=== PATIENT | female | born 1985 | race Caucasian/White ===

== ENCOUNTER 2022-06-08 19:35 | Emergency (ER) | payer MEDICAID, SELFPAY ==
[2022-06-08 20:55] VITALS: BP 138/72; PULSE 76; RESP 18; TEMP 36.7; O2SAT 98; BMI 46.0
--- NOTE | 2022-06-08 21:59 | XR_ITS ---
PROCEDURE INFORMATION: Exam: XR Chest Exam date and time: 06/08/2022 9:55 PM Age: 37 years old Clinical indication: Other: Congestion TECHNIQUE: Imaging protocol: Radiologic exam of the chest. Views: 2 views. COMPARISON: No relevant prior studies available. FINDINGS: Lungs: Unremarkable. No consolidation. Pleural spaces: Unremarkable. No pleural effusion. No pneumothorax. Heart/Mediastinum: Unremarkable. No cardiomegaly. Bones/joints: Unremarkable. IMPRESSION: No acute findings.
[2022-06-08 22:02] LABS: Coronavirus 19, PCR Not Detected (NotDetected); Influenza A, PCR Not Detected (NotDetected)
[2022-06-08 22:14] LABS: Strep Scrn Group A (Rapid) Negative (Negative)
--- NOTE | 2022-06-08 22:21 | HMH.EDURI ---
Discharge Plan Disposition Chief Complaint: Upper Respiratory Infection Prescriptions Prescriptions: No Action Unobtainable Referrals Follow up/Referrals: Provider,Referral, MD [Primary Care Provider] - See instructions Clinical Impressions Clinical Impression: Bronchitis Stand Alone Forms Stand Alone Forms: Work/School Release Instructions Patient Instructions: DI for Acute Bronchitis Discharge ED Provider: Yamila (ED)Santosh URI/Sore Throat HPI General Chief Complaint: Upper Respiratory Infection Stated Complaint: Cough,Congestion,Back pain Time Seen by Provider: 06/08/22 22:21 Mode of Arrival: Family Vehicle Source of Information: Patient and Medical Record Limitations: No Limitations Description of Symptoms (Recalled from ER Triage Doc. by RN): cough and congestion for several days; 1ppd smoker; no obvious dyspnea, cough is productive and keeping her awake at night History of Present Illness HPI Narrative: cough and congestion with child ill and has hx of tob use - Complaint: cough Onset (ago): day(s) Duration: intermittent Severity: moderate Able to tolerate fluids by mouth: Yes Context: sick contacts Associated symptoms: denies other symptoms Treatments prior to arrival: none Related Data Home Medications Medication Instructions Recorded Confirmed Unobtainable 06/08/22 06/08/22 Allergies Allergy/AdvReac Type Severity Reaction Status Date / Time No Known Allergies Allergy Verified 06/08/22 21:00 [facility] Disclaimer: The information contained in this section may have been updated after the patient was seen, as this information can be updated by other users. Social History Smoking Status: Current every day smoker alcohol intake: never current occupational status: employed Travel in the last 8 weeks: None ROS Obtained: Yes All systems reviewed & no additional complaints except as documented Physical Exam General General appearance: alert Head Head exam: normocephalic Eye Eye exam: Present PERRL and EOMI ENT ENT exam: Present normal oropharynx and mucous membranes moist Neck Neck exam: Present trachea midline Respiratory Respiratory exam: Absent respiratory distress Cardiovascular Cardiovascular exam: Present regular rate Abdominal Exam Abdominal exam: Present soft Extremities Exam Extremities exam: Present full ROM Neurological Exam Neurological exam: Present alert, oriented X3 and CN II-XII intact; Absent motor sensory deficit Psychiatric Psychiatric exam: Present normal affect Skin Skin exam: Absent rash Medical Decision Making Medical Records Medical records reviewed: Yes I reviewed the patient's medical records. Karlo Inquiry Pt receiving controlled substance: No Vital Signs: 06/08/22 20:55 Temperature 98.0 F Temperature Source Oral Pulse Rate [Right Brachial] 76 Respiratory Rate 18 Blood Pressure [Right Arm] 138/72 Blood Pressure Mean [Right Arm] 94 Blood Pressure Source [Right Arm] Automatic Cuff Blood Pressure Position [Right Arm] Sitting 02 Sat by Pulse Oximetry 98 Oxygen Delivery Method Room Air Lab Data Lab results reviewed: Yes I reviewed the patient's lab results. Lab Results 06/08/22 21:15: Group A Strep Rapid Negative Orders (Tests/Meds): ORDERS Category Date Time Status Chest XR 2 view (NOT portable) [XR chest 2V] Stat Exams 06/08/22 21:59 Completed Rapid PCR Covid and Flu A/B Stat Lab 06/08/22 21:15 Received Strep Scrn Group A (Rapid) Stat Lab 06/08/22 21:15 Completed Strep Screen Confirmation Stat Micro 06/08/22 21:15 Received Radiology Data #1: Image(s): Chest Image Reviewed: Yes I have reviewed radiologist's interpretation Preliminary Findings: Abnormal see report Medical Decision Narrative: has cough and possible viral syndrome - neg cxr and has sibling with viral illness Critical Care Time Critical Care Time Critical Care Time: No At
[2022-06-08 23:27] VITALS: BP 129/75; PULSE 89; RESP 19; TEMP 37.2; O2SAT 98
[2022-06-08 23:40] LABS: Influenza B, PCR Detected (NotDetected)
== END 2022-06-08 23:31 | disposition home or self-care (01) ==
PROVIDERS: Emergency Provider Emergency Medicine
DX: J20.9 Acute bronchitis, unspecified (principal); F17.200 Nicotine dependence, unspecified, uncomplicated
CPT/HCPCS: 71046; 87430; 99284; C9803; U0003; U0005

== ENCOUNTER 2022-09-27 15:56 | Emergency (ER) | payer MEDICAID, SELFPAY ==
[2022-09-27] VITALS (7 sets, daily range): BP systolic 130–148; BP diastolic 66–91; PULSE 64–91; RESP 18–19; TEMP 36.9; O2SAT 96–99; BMI 46.3; BMI 25.0
--- NOTE | 2022-09-27 16:07 | HMH.EDGENADL ---
Discharge Plan Disposition Patient Disposition: Home, Self-Care Condition: Good Prescriptions Prescriptions: New ondansetron 4 mg tablet,disintegrating 4 mg PO DAILY Qty: 30 0RF No Action oseltamivir [Tamiflu] 75 mg capsule 75 mg PO BID 5 Days Qty: 10 0RF Referrals Follow up/Referrals: Provider,Referral, [Primary Care Provider] - See instructions Clinical Impressions Clinical Impression: Abdominal pain Instructions Patient Instructions: Acute Abdominal Pain, DI for Acute Abdominal Pain Discharge ED Provider: Shana Randall General Adult HPI General Chief complaint: Abdominal Pain Stated complaint: lower abd pain Time Seen by Provider: 09/27/22 16:02 History of Present Illness HPI narrative: Patient has a PMHx significant for obesity, trigeminal neuralgia, hypertension who presents to the ED with complaints of abdominal pain. Patient notes that she woke up this morning with a severe, sharp pain in her lower quadrants. Initially, her pain improved, but as the day continued, her pain progressively worsened. Patient notes exacerbation of pain with any sort of range of motion. Patient endorses associated nausea and loss of appetite today, but no vomiting, fevers, chills. Patient denies any hematuria, urinary urgency, frequency, dysuria, no GI bleeding. Patient denies any prior abdominal surgeries. Patient notes a few episodes of nonbloody, diarrhea over the past 24 hours. Related Data Previous Rx's Medication Instructions Recorded oseltamivir 75 mg capsule (Tamiflu) 75 mg PO BID 5 days #10 caps 06/09/22 ondansetron 4 mg disintegrating 4 mg PO DAILY #30 tabs 09/27/22 tablet Allergies Allergy/AdvReac Type Severity Reaction Status Date / Time No Known Allergies Allergy Verified 06/08/22 21:00 [facility] Disclaimer: The information contained in this section may have been updated after the patient was seen, as this information can be updated by other users. Social History (Updated 06/08/22 @ 23:25 by Santosh Driscoll (ED)MD) Smoking Status: Current every day smoker alcohol intake: never current occupational status: employed Travel in the last 8 weeks: None ROS Obtained: Yes All systems reviewed & no additional complaints except as documented Physical Exam General General appearance: alert and in no apparent distress Head Head exam: atraumatic, normocephalic and normal inspection Eye Eye exam: Present normal appearance, PERRL and EOMI; Absent scleral icterus or nystagmus ENT ENT exam: Present normal exam, mucous membranes moist and normal external ear exam Neck Neck exam: Present normal inspection, full ROM and trachea midline Chest Chest inspection: Present normal inspection and symmetric chest wall rise; Absent tenderness Respiratory Respiratory exam: Present normal lung sounds bilaterally; Absent respiratory distress, wheezes or accessory muscle use Cardiovascular Cardiovascular exam: Present regular rate, normal rhythm and normal heart sounds Abdominal Exam Abdominal exam: Present soft and tenderness (TTP in all lower quadrants); Absent distention, guarding, rebound, rigidity, trauma, ascites or pulsatile mass Extremities Exam Extremities exam: Present normal inspection and full ROM; Absent tenderness Back Exam Back exam: Present normal inspection and full ROM; Absent tenderness Neurological Exam Neurological exam: Present alert, oriented X3, normal gait and motor sensory deficit Psychiatric Psychiatric exam: Present normal affect and normal mood Skin Skin exam: Present warm, dry and normal color Medical Decision Making Medical Records Medical records reviewed: Yes I reviewed the patient's medical records. Karlo Inquiry Pt receiving controlled substance: No Vital Signs: 09/27/22 15:58 09/27/22 16:05 09/27/22 16:31 Temperature Source Oral Pulse Rate 86 71 Pulse Rate [Right] 91 H Respiratory Rate 19 Blood Pressure 148/91 H 130/75 Blood
--- NOTE | 2022-09-27 16:09 | CT_ITS ---
PROCEDURE INFORMATION: Exam: CT Abdomen And Pelvis With Contrast Exam date and time: 09/27/2022 4:55 PM Age: 37 years old Clinical indication: Abdominal pain; Generalized; Additional info: Low abd pain TECHNIQUE: Imaging protocol: Computed tomography of the abdomen and pelvis with contrast. Radiation optimization: All CT scans at this facility use at least one of these dose optimization techniques: automated exposure control; mA and/or kV adjustment per patient size (includes targeted exams where dose is matched to clinical indication); or iterative reconstruction. Contrast material: ISOVUE; Contrast volume: 75 ml; Contrast route: IV; REPORTING DATA: Count of CT and Cardiac NM exams in prior 12 months: This patient has received 0 known CTs and 0 known cardiac nuclear medicine studies in the 12 months prior to the current study. COMPARISON: CR XR CHEST 2V 06/08/2022 9:55 PM FINDINGS: Lungs: Partial visualization of a calcified granuloma in the right lung. Liver: Normal. No mass. Gallbladder and bile ducts: Status post cholecystectomy. Pancreas: Normal. No ductal dilation. Spleen: There are multiple calcifications in the spleen most likely reflects small granulomas. Adrenal glands: Normal. No mass. Kidneys and ureters: Normal. No hydronephrosis. Stomach and bowel: There is moderate mucosal fat deposition involving the ileocecal valve which suggests chronic inflammation. Appendix: Normal appendix. Intraperitoneal space: Unremarkable. No free air. No significant fluid collection. Vasculature: Unremarkable. No abdominal aortic aneurysm. Lymph nodes: Unremarkable. No enlarged lymph nodes. Urinary bladder: Unremarkable as visualized. Reproductive: There is an IUD in place. Bones/joints: Unremarkable. No acute fracture. Soft tissues: Unremarkable. IMPRESSION: Advanced fatty deposition involving the mucosal portion of the ileocecal valve suggests chronic inflammatory change. No acute inflammation or abnormality is seen on this study.
[2022-09-27 16:17] LABS: Microscopic, Urine URINE MICROSCOPIC (MICROSCOPIC)
[2022-09-27 16:35] LABS: Basophils % 0.2 % (0.1-2.0); Eosinophils # 0.1 K/mm3 (0.0-0.4); Eosinophils % 1.1 % (0.1-12.0); Hematocrit 46.1 % (37.0-47.0); Hemoglobin 14.6 g/dL (12.2-16.2); Lymphocytes % 17.6 % (10-50); Mean Corpuscular HGB Conc 31.6 g/dL (31.8-35.4); Mean Corpuscular Hemoglobin 26.3 pg (27.0-31.2); Mean Corpuscular Volume 83.3 fl (81-99); Mean Platelet Volume 8.5 fl (7.4-10.4); Monocytes # 0.4 K/mm3 (0.1-1.0); Monocytes % 3.3 % (1.7-9.3); Neutrophils # 8.6 K/mm3 (1.8-7.8); Neutrophils % 77.8 % (37.0-80.0); Platelet Count 206 K/mm3 (142-424); Red Blood Count 5.54 M/mm3 (4.20-5.40); Red Cell Distribution Width 14.4 % (11.5-17.5); White Blood Count 11.1 K/mm3 (4.8-10.8)
[2022-09-27 16:39] LABS: Appearance,Urine CLEAR (Clear); Bilirubin,Urine Negative (Negative); Blood, Urine 2+ (Negative); Color,Urine YELLOW (Yellow); Glucose,Urine (UA) Negative (Negative); Ketones,Urine Negative (Negative); Leukocyte Esterase,Urine Negative (Negative); Nitrate,Urine Negative (Negative); Protein,Urine Negative (Negative)
[2022-09-27 16:41] LABS: HCG Qualitative, Serum Negative (Negative)
[2022-09-27 16:42] LABS: Alanine Aminotransferase 26 U/L (12-78); Albumin Level 4.8 g/dl (3.5-5.0); Albumin/Globulin Ratio 1.1 (1.1-1.8); Alkaline Phosphatase 93 U/L (38-126); Anion Gap 12.9 mEq/L (5-15); Aspartate Amino Transferase 27 U/L (14-36); Bilirubin,Total 0.4 mg/dl (0.2-1.3); Blood Urea Nitrogen 12 mg/dl (7-17); Calcium 9.5 mg/dl (8.4-10.2); Carbon Dioxide 29 mmol/L (22.0-30.0); Chloride 105 mmol/L (98-107); Creatinine Clearance Estimated 116 mL/min (50-200); Estimated Glomerular Filt Rate 93 ml/min (>60); GFR (African American) 113 ML/MIN (>60); Globulin 4.2 g/dL (1.3-3.2); Glucose 88 mg/dl (74-100); Lipase 27 U/L (23-300); Potassium 3.9 mmoL/L (3.5-5.1); Sodium 143 mmol/L (136-145)
--- NOTE | 2022-09-27 16:52 | PC.NURSE ---
pt at ct
[2022-09-27 16:59] LABS: Squamous Epithelial Cell,Urine Occasional #/hpf (0-5); WBC,Urine Occasional #/hpf (0-3)
[2022-09-27 18:00] LABS: Lactic Acid 0.5 mmol/L (0.7-2.1)
== END 2022-09-27 18:30 | disposition home or self-care (01) ==
PROVIDERS: Emergency Provider Emergency Medicine
DX: R10.31 Right lower quadrant pain (principal); R10.32 Left lower quadrant pain; R11.0 Nausea; I10 Essential (primary) hypertension; E66.9 Obesity, unspecified; F17.200 Nicotine dependence, unspecified, uncomplicated
CPT/HCPCS: 36415; 74177; 80053; 81001; 83605; 83690; 84703; 85025; 96361; 96374; 96375; 99285; J2405; Q9967

== ENCOUNTER 2022-10-17 14:47 | Emergency (ER) | payer MEDICAID, SELFPAY ==
[2022-10-17 14:48] VITALS: BP 140/78; PULSE 78; RESP 17; TEMP 36.5; O2SAT 100; BMI 41.1
[2022-10-17 14:53] VITALS: BP 140/78; PULSE 78; O2SAT 100
[2022-10-17 15:00] VITALS: BP 151/86; PULSE 72; O2SAT 100
--- NOTE | 2022-10-17 15:13 | HMH.EDGENADL ---
Discharge Plan Disposition Patient Disposition: Home, Self-Care Condition: Good Prescriptions Prescriptions: New ciprofloxacin-dexamethasone [Ciprodex] 0.3-0.1 % drops,suspension 4 drp Ear-Right BID 7 Days Qty: 7.5 0RF No Action oseltamivir [Tamiflu] 75 mg capsule 75 mg PO BID 5 Days Qty: 10 0RF ondansetron 4 mg tablet,disintegrating 4 mg PO DAILY Qty: 30 0RF Referrals Follow up/Referrals: Provider,Referral, MD [Primary Care Provider] - See instructions Activity Restrictions/Add. Instructions Additional Instructions/Restrictions: You were evaluated in the emergency department today and diagnosed with an ear infection. Please pickling grader your prescription at the pharmacy and take the full course as prescribed. Take Tylenol and ibuprofen at home as needed for pain. Follow-up with your primary care provider over the next 4 days for reassessment. Return to the emergency department for any new or worsening symptoms. Clinical Impressions Clinical Impression: Acute otitis externa of right ear Qualifiers: Otitis externa type: swimmer's ear Qualified Code(s): H60.331 - Swimmer's ear, right ear Instructions Patient Instructions: DI for Otitis Externa Discharge ED Provider: Aishwarya Moss General Adult HPI General Chief complaint: Ear Stated complaint: ear pain Time Seen by Provider: 10/17/22 15:05 Mode of Arrival: Ambulatory Source of Information: Patient Limitations: No Limitations Description of Symptoms (Recalled from ER Triage Doc. by RN): PT REPORTS RIGHT EAR PAIN X 2 DAYS History of Present Illness HPI narrative: This patient is a 37-year-old female who reports a history of trigeminal neuralgia presenting to the emergency department for evaluation with concern for right ear pain that has been going on for 2 days. She states that her ear is now draining. She has not tried anything to alleviate the symptoms. She states has been having chills, but denies fevers, cough, congestion, abdominal pain, nausea, vomiting, changes in bowel movements, rashes, or swelling. Of note, she says that she tripped and fell, landing on her right hip. She denies any significant pain as a result of this and is still able to ambulate without difficulty. No new numbness tingling or other concerns. Related Data Previous Rx's Medication Instructions Recorded oseltamivir 75 mg capsule (Tamiflu) 75 mg PO BID 5 days #10 caps 06/09/22 ondansetron 4 mg disintegrating 4 mg PO DAILY #30 tabs 09/27/22 tablet ciprofloxacin 0.3 %-dexamethasone 4 drp Ear-Right BID 7 days #7.5 mL 10/17/22 0.1 % ear drops,suspension (Ciprodex) Allergies Allergy/AdvReac Type Severity Reaction Status Date / Time No Known Allergies Allergy Verified 06/08/22 21:00 [facility] Disclaimer: The information contained in this section may have been updated after the patient was seen, as this information can be updated by other users. Social History Smoking Status: Never smoker alcohol intake: never current occupational status: employed Travel in the last 8 weeks: None ROS Obtained: Yes All systems reviewed & no additional complaints except as documented Physical Exam General General appearance: alert and in no apparent distress Head Head exam: atraumatic and normocephalic Eye Eye exam: Present normal appearance, PERRL and EOMI ENT ENT exam: Present normal oropharynx, mucous membranes moist, TM's normal bilaterally and normal external ear exam Expanded ENT Exam External ear exam: Present other (Concerns for right otitis externa on exam with irritation and drainage in her right ear canal. TM itself is not erythematous, bulging, and has no significant effusion behind it.); Absent mastoid tenderness, pain with movement, external tenderness or periauricular adenopathy TM/Canal exam: Right TM: canal discharge and canal tenderness Neck Neck exam: Present normal inspection, full ROM
[2022-10-17 15:20] VITALS: BP 151/86; PULSE 71; RESP 18; TEMP 36.6; O2SAT 98
== END 2022-10-17 15:20 | disposition home or self-care (01) ==
PROVIDERS: Emergency Provider Emergency Medicine
DX: H60.331 Swimmer's ear, right ear (principal)
CPT/HCPCS: 99283

== ENCOUNTER 2022-12-13 22:38 | Emergency (ER) | payer MEDICAID, SELFPAY ==
[2022-12-13 22:39] VITALS: BP 167/127; PULSE 90; RESP 19; TEMP 36.8; O2SAT 98; BMI 44.4
--- NOTE | 2022-12-13 22:45 | ECG_ITS ---
APPROVED REPORT Exam: Resting ECG HR:81 bpm ECG Measurements Heart Rate 81 AXES IL 175 P 70 QRSd 102 QRS 40 QT 356 T 56 QTc 393 Conclusion SINUS RHYTHM POSSIBLE LEFT ATRIAL ENLARGEMENT [-0.1mV P-WAVE IN V1/V2] INCOMPLETE RIGHT BUNDLE BRANCH BLOCK [90+ ms QRS DURATION, TERMINAL R IN V1/V2, 40+ ms S IN I/aVL/V4/V5/V6] BORDERLINE ECG UNCONFIRMED REPORT Electronically signed by : Reza Ruth MD 12/14/2022 14:41:11
[2022-12-13 22:50] VITALS: BP 148/102; PULSE 89; RESP 19; O2SAT 98
--- NOTE | 2022-12-13 22:50 | CT_ITS ---
PROCEDURE INFORMATION: Exam: CT Head Without Contrast Exam date and time: 12/13/2022 11:08 PM Age: 37 years old Clinical indication: Pain; Patient HX: PT states she had a headache earlier, but has since subsided. C/O dizziness and blurred vision. States HX of trigeminal neuralgia. Also states HX of HTN, but forgot to take medicine for BP today; Additional info: Acute frontal sharp headache TECHNIQUE: Imaging protocol: Computed tomography of the head without contrast. Radiation optimization: All CT scans at this facility use at least one of these dose optimization techniques: automated exposure control; mA and/or kV adjustment per patient size (includes targeted exams where dose is matched to clinical indication); or iterative reconstruction. REPORTING DATA: Count of CT and Cardiac NM exams in prior 12 months: This patient has received [address] and 0 known cardiac nuclear medicine studies in the 12 months prior to the current study. COMPARISON: No relevant prior studies available. FINDINGS: Brain: Normal. No hemorrhage. Unremarkable white matter. No mass effect. Cerebral ventricles: No ventriculomegaly. Paranasal sinuses: Mild paranasal sinus disease. Mastoid air cells: Visualized mastoid air cells are well aerated. Bones/joints: Unremarkable. No acute fracture. Soft tissues: Unremarkable. IMPRESSION: No acute intracranial abnormality.
--- NOTE | 2022-12-13 23:02 | PC.NURSE ---
Patient to CT
[2022-12-13 23:03] LABS: Basophils % 0.4 % (0.1-2.0); Eosinophils # 0.1 K/mm3 (0.0-0.4); Eosinophils % 1.3 % (0.1-12.0); Hemoglobin 14.3 g/dL (12.2-16.2); Lymphocytes # 3.3 K/mm3 (0.7-4.5); Lymphocytes % 34.4 % (10-50); Mean Corpuscular Hemoglobin 28.8 pg (27.0-31.2); Mean Corpuscular Volume 84.6 fl (81-99); Mean Platelet Volume 8.4 fl (7.4-10.4); Monocytes # 0.5 K/mm3 (0.1-1.0); Monocytes % 5.8 % (1.7-9.3); Neutrophils # 5.5 K/mm3 (1.8-7.8); Platelet Count 193 K/mm3 (142-424); Red Blood Count 4.97 M/mm3 (4.20-5.40); Red Cell Distribution Width 14.1 % (11.5-17.5); White Blood Count 9.4 K/mm3 (4.8-10.8)
[2022-12-13 23:09] LABS: Alanine Aminotransferase 33 U/L (12-78); Albumin Level 4.6 g/dl (3.5-5.0); Albumin/Globulin Ratio 1.3 (1.1-1.8); Alkaline Phosphatase 75 U/L (38-126); Anion Gap 12.3 mEq/L (5-15); Aspartate Amino Transferase 31 U/L (14-36); Bilirubin,Total 0.2 mg/dl (0.2-1.3); Blood Urea Nitrogen 12 mg/dl (7-17); Calcium 9.3 mg/dl (8.4-10.2); Carbon Dioxide 31 mmol/L (22.0-30.0); Chloride 102 mmol/L (98-107); Creatinine Clearance Estimated 109 mL/min (50-200); Estimated Glomerular Filt Rate 111 ml/min (>60); GFR (African American) 135 ML/MIN (>60); Globulin 3.5 g/dL (1.3-3.2); Glucose 96 mg/dl (74-100); Potassium 3.3 mmoL/L (3.5-5.1); Sodium 142 mmol/L (136-145); Total Protein,Serum 8.1 g/dl (6.3-8.2)
[2022-12-13 23:11] LABS: HCG Qualitative, Serum Negative (Negative)
--- NOTE | 2022-12-13 23:12 | PC.NURSE ---
Patient back from CT
--- NOTE | 2022-12-13 23:41 | PC.NURSE ---
CT back and read by Attending. UA sent to hold in lab. Swab sent per order
[2022-12-13 23:50] LABS: Coronavirus 19, PCR Not Detected (NotDetected); Influenza A, PCR Not Detected (NotDetected); Influenza B, PCR Not Detected (NotDetected)
--- NOTE | 2022-12-14 00:15 | HMH.EDGENADL ---
Discharge Plan Disposition Patient Disposition: Home, Self-Care Condition: Good Prescriptions Prescriptions: No Action fluoxetine 40 mg capsule 40 mg PO DAILY Patient Comments: TAKE 1 CAPSULE BY MOUTH ONCE DAILY gabapentin 400 mg capsule 400 mg PO TID Patient Comments: TAKE 1 CAPSULE BY MOUTH THREE TIMES DAILY carbamazepine 200 mg tablet extended release 12 hr 200 mg PO BID Patient Comments: TAKE 1 TABLET BY MOUTH EVERY 12 HOURS baclofen 10 mg tablet 10 mg PO TIDP PRN (Reason: Pain) Patient Comments: TAKE 1 TABLET BY MOUTH UP TO THREE TIMES DAILY Referrals Follow up/Referrals: Macario Valentin MD [Primary Care Provider] - See instructions Activity Restrictions/Add. Instructions Additional Instructions/Restrictions: You were evaluated in the emergency department today. Please follow-up with your primary care provider. Return to the emergency department for new or worsening symptoms. Clinical Impressions Clinical Impression: Migraine Stand Alone Forms Stand Alone Forms: Work/School Release Instructions Patient Instructions: DI for Migraine Discharge ED Provider: Aishwarya Moss General Adult HPI General Chief complaint: Headache Stated complaint: dizzy, h/a, blurry vision Time Seen by Provider: 12/13/22 23:03 Mode of Arrival: Wheelchair Source of Information: Patient Limitations: No Limitations Description of Symptoms (Recalled from ER Triage Doc. by RN): 37 F presents from home with acute sharp frontal headache for 24-48 hours. Reports history of migraines, but this one is different. She states she is in between PCP's currently, but has been battling high blood pressure in the mean time. She does take medication for trigeminal neuralgia and htn. No focal neurological deficit. NIH 0, GCS 15, NAD, VSS. History of Present Illness HPI narrative: This patient is a 37-year-old female who reports a history of migraines and trigeminal neuralgia presenting to the emergency department for evaluation with concern for headache that started around 7:30 PM. She states that it started while she was driving. She notes that she had visual aura with this. She has a history of migraines but notes that this feels slightly different. She describes it as a pain in the right front of her head. She denies any other concerns or complaints, such as numbness, tingling, unilateral weakness, or other concerns. Related Data Home Medications Medication Instructions Recorded Confirmed baclofen 10 mg tablet 10 mg PO TIDP PRN Pain 12/13/22 12/13/22 carbamazepine 200 mg 200 mg PO BID 12/13/22 12/13/22 tablet,extended release,12 hr fluoxetine 40 mg capsule 40 mg PO DAILY 12/13/22 12/13/22 gabapentin 400 mg capsule 400 mg PO TID 12/13/22 12/13/22 Allergies Allergy/AdvReac Type Severity Reaction Status Date / Time No Known Allergies Allergy Verified 06/08/22 21:00 [facility] Disclaimer: The information contained in this section may have been updated after the patient was seen, as this information can be updated by other users. Social History Smoking Status: Current every day smoker alcohol intake: never current occupational status: employed Travel in the last 8 weeks: None ROS Obtained: Yes All systems reviewed & no additional complaints except as documented Physical Exam General General appearance: alert and in no apparent distress Head Head exam: atraumatic and normocephalic Eye Eye exam: Present normal appearance, PERRL and EOMI ENT ENT exam: Present normal exam, normal oropharynx, mucous membranes moist and normal external ear exam Neck Neck exam: Present normal inspection, full ROM and trachea midline; Absent tenderness Chest Chest inspection: Present normal inspection and symmetric chest wall rise; Absent tenderness Respiratory Respiratory exam: Present normal lung sounds bilaterally; Absent respira
--- NOTE | 2022-12-14 00:45 | PC.NURSE ---
in room talking with patient at this time.
[2022-12-14 01:39] VITALS: BP 149/85; PULSE 77; RESP 16; TEMP 36.8; O2SAT 97
== END 2022-12-14 01:40 | disposition home or self-care (01) ==
PROVIDERS: Emergency Provider Emergency Medicine; PCP Internal Medicine
DX: G43.909 Migraine, unspecified, not intractable, without status migrainosus (principal); F17.210 Nicotine dependence, cigarettes, uncomplicated; G50.0 Trigeminal neuralgia
CPT/HCPCS: 70450; 80053; 84703; 85025; 87636; 93005; 96361; 96374; 96375; 99284; J0131

== ENCOUNTER 2023-06-30 09:41 | Outpatient (CLI) | payer MEDICAID, SELFPAY ==
--- NOTE | 2023-06-30 09:55 | XR_ITS ---
FINAL REPORT CLINICAL HISTORY: Neck pain with radiculopathy COMPARISON: None FINDINGS: Three views of the cervical spine were obtained. There is no fracture present. There is no malalignment. There is mild degenerative change at C5-6 with mild kyphosis at that level. IMPRESSION: Degenerative changes without acute process. Reviewed, Interpreted and Dictated by Manuel Wadsworth III, MD Transcribed by Amanda Chang Authenticated and [facility]
--- NOTE | 2023-06-30 09:55 | XR_ITS ---
FINAL REPORT CLINICAL HISTORY: Knee pain COMPARISON: None FINDINGS: Two views of the right knee were obtained. There is no evidence of fracture or dislocation. The bony alignment is normal. There is mild degenerative change. There is no evidence of joint effusion. No localized soft tissue abnormality is identified. IMPRESSION: Mild degenerative change without acute abnormality identified. Reviewed, Interpreted and Dictated by Manuel Wadsworth III, MD Transcribed by Amanda Chang Authenticated and [facility]
--- NOTE | 2023-06-30 09:55 | XR_ITS ---
FINAL REPORT CLINICAL HISTORY: Knee pain COMPARISON: None FINDINGS: Two views of the left knee were obtained. There is no evidence of fracture or dislocation. The bony alignment is normal. The joint spaces are preserved. There is no evidence of joint effusion. No localized soft tissue abnormality is seen. There is no evidence of foreign body. IMPRESSION: No acute abnormality identified. Reviewed, Interpreted and Dictated by Manuel Wadsworth III, MD Transcribed by Amanda Chang Authenticated and [facility]
--- NOTE | 2023-06-30 09:55 | XR_ITS ---
FINAL REPORT CLINICAL HISTORY: Hip pain/reduced range of motion COMPARISON: None FINDINGS: SINGLE VIEW PELVIS: A single view of the pelvis was obtained. There is no acute fracture or dislocation. There is mild degenerative change of the hips and lower lumbar spine. An IUD is noted in the mid pelvis. Soft tissues are unremarkable. IMPRESSION: Mild degenerative change without acute bony abnormality. Reviewed, Interpreted and Dictated by Manuel Wadsworth III, MD Transcribed by Amanda Chang Authenticated and [facility]
[2023-06-30 10:08] LABS: Basophils # 0.1 K/mm3 (0-0.2); Basophils % 0.8 % (0.1-2.0); Eosinophils # 0.1 K/mm3 (0.0-0.4); Eosinophils % 1.6 % (0.1-12.0); Hematocrit 45.7 % (37.0-47.0); Hemoglobin 14.9 g/dL (12.2-16.2); Lymphocytes % 28.3 % (10-50); Mean Corpuscular HGB Conc 32.6 g/dL (31.8-35.4); Mean Corpuscular Volume 85.9 fl (81-99); Mean Platelet Volume 8.7 fl (7.4-10.4); Monocytes # 0.4 K/mm3 (0.1-1.0); Monocytes % 5.9 % (1.7-9.3); Neutrophils # 4.4 K/mm3 (1.8-7.8); Neutrophils % 63.4 % (37.0-80.0); Platelet Count 185 K/mm3 (142-424); Red Blood Count 5.32 M/mm3 (4.20-5.40); Red Cell Distribution Width 13.7 % (11.5-17.5); White Blood Count 6.9 K/mm3 (4.8-10.8)
[2023-06-30 10:49] LABS: Alanine Aminotransferase 29 U/L (12-78); Albumin Level 4.2 g/dl (3.5-5.0); Albumin/Globulin Ratio 1.5 (1.1-1.8); Alkaline Phosphatase 84 U/L (38-126); Anion Gap 13.1 mEq/L (5-15); Aspartate Amino Transferase 25 U/L (14-36); Bilirubin,Total 0.5 mg/dl (0.2-1.3); Blood Urea Nitrogen 12 mg/dl (7-17); Calcium 9.5 mg/dl (8.4-10.2); Carbon Dioxide 31 mmol/L (22.0-30.0); Chloride 102 mmol/L (98-107); Chol/HDL Ratio 4.2 (1-3.5); Cholesterol 197 mg/dl (140-200); Estimated Glomerular Filt Rate 111 ml/min (>60); GFR (African American) 134 ML/MIN (>60); Globulin 2.8 g/dL (1.3-3.2); Glucose 100 mg/dl (74-100); HDL Cholesterol 47 mg/dl (40-60); Potassium 4.1 mmoL/L (3.5-5.1); Sodium 142 mmol/L (136-145); Triglycerides 138 mg/dl (30-150); VLDL Cholesterol 28 mg/dL (0-40)
[2023-06-30 10:58] LABS: Free T4 (Free Thyroxine) 0.79 ng/dl (0.78-2.19)
[2023-06-30 11:00] LABS: Direct LDL Cholesterol 111.93 mg/dL (100-129)
[2023-06-30 11:15] LABS: 25-OH Vitamin D, Total < 12.8 ng/mL (30-100)
[2023-06-30 11:56] LABS: Hemoglobin A1C 5.7 % (4.0-6.0)
== END 2023-06-30 23:59 | disposition home or self-care (01) ==
LOC: LAB 09:43
PROVIDERS: PCP Internal Medicine; Visit Provider Internal Medicine
DX: F32.0 Major depressive disorder, single episode, mild; G50.0 Trigeminal neuralgia; M54.2 Cervicalgia; M25.561 Pain in right knee; M25.562 Pain in left knee; E66.01 Morbid (severe) obesity due to excess calories; Z68.42 Body mass index [BMI] 45.0-49.9, adult; Z79.899 Other long term (current) drug therapy; F41.9 Anxiety disorder, unspecified; F17.210 Nicotine dependence, cigarettes, uncomplicated
CPT/HCPCS: 36415; 72040; 72170; 73560; 80053; 80061; 82306; 83036; 84439; 84443; 85025

== ENCOUNTER 2023-08-17 09:22 | Outpatient (POV) | payer MEDICAID, SELFPAY ==
[2023-08-17 10:06] VITALS: BP 149/93; PULSE 80; RESP 18; O2SAT 97; BMI 43.7
--- NOTE | 2023-08-17 10:24 | A.OFFVIS_ITS ---
HPI Data of Consult Patient: new to practice Consult date: 08/17/23 Requesting Physician: Aishwarya Cox APRN Primary Care Provider: Davian Veliz DO Consult Narrative Reason for consult: Left jaw/facial pain History of present illness: Ms. Barber is a 38 year old female who presents today as a new patient. She is a referral from Davian Veliz's office. Today she rates her pain to a 10 out of 10. Patient states her pain is all along the left side of her jaw all that radiates into her face. Patient states this has been going on for 4 years unrelated to any specific trauma or injury. Patient states she has tried [id number] medications such as Tylenol and ibuprofen along with heat and ice and topicals with minimal relief. Patient states initially it would come and go and was not constant however as time is progressed it is now every day and unrelenting. Patient states initially she thought it had something to do with her teeth and went to the dentist and they pulled some with no additional change. Patient does state that she did also go to the ER last year and was given some gabapentin and other medications that really seem to help. Patient states she was prescribed gabapentin and baclofen but states that these made no improvement now. She states she was recently taken to the ER at however they gave her several IV medications along with steroids and oxycodone 5 mg and it did not touch the pain. Patient states she has also tried CBD cream and initially it did seem to help but then is no longer effective. Patient states the pain interferes with her ability perform activities of daily living such as cooking or cleaning. She states she can even eat due to the pain with movement of her jaw. Patient states that they did see an ENT specialist with no significant findings. Patient has done at home exercising and stretching for longer than 6 weeks with minimal relief. Her Karlo has been reviewed and is appropriate. CC: Aishwarya Cox APRN [facility] Disclaimer: The information contained in this section may have been updated after the patient was seen, as this information can be updated by other users. Medical History Arthritis Depression Anxiety Hypertension Trigeminal neuralgia Surgical History S/P skin biopsy benign skin biopsy Hx of tonsillectomy Hx of cholecystectomy Family History Mother Diabetes Social History (Updated 08/17/23 @ 10:08 by Kamila Polanco RN) Smoking Status: Current every day smoker tobacco type: cigarettes packs per day: 1 alcohol intake: never substance use type: denies use current occupational status: employed Travel in the last 8 weeks: None Review of Systems Review of Systems Review of systems:: pertinent systems reviewed and negative unless documented below Review of systems (narrative): Review of Systems: General: No recent weight changes, no fever, no sleep disturbances Respiratory: No cough, no shortness of air, no recurring pulmonary infections Cardiovascular/peripheral vascular: No chest pain, no palpitations, no edema, no shortness of breath Gastrointestinal: No new onset incontinence, normal bowel movements reported Genitourinary: No new onset incontinence Musculoskeletal: Left jaw pain, left facial pain Psychiatric: [Normal mood/affect] Neurological: [Denies weakness in extremities], [denies balance issues] Meds Home Medications and Allergies Home Medications Medication Instructions Recorded Confirmed Type baclofen 10 mg tablet 10 mg PO TIDP PRN Pain 12/13/22 08/17/23 History fluoxetine 40 mg capsule 40 mg PO DAILY 12/13/22 08/17/23 History gabapentin 400 mg capsule 400 mg PO TID 12/13/22 08/17/23 History carbamazepine 200 mg 200 mg PO TID 04/27/23 08/17/23 History tablet,extended release,12 hr fluconazole 150 mg tablet 150 mg PO ONCE 04/27/23 08/17/23 History hydroxyzine HCl 25 mg tablet 25 mg PO TID PRN MOOD 04/27/23 08/17/23 History cholecalciferol (vitamin D3) 1,250 1,250 mcg PO WEEKLY #12 caps 06/30/23 08/17/23 Rx mcg (50,000 unit) capsule New Prescriptions to Start Prescriptions: Allergies Allergy/AdvReac Type Severity Reaction Status Date / Time No Known Allergies Allergy Verified 07/12/23 08:04 Objective Vital signs: Pulse Resp BP Pulse Ox O2 Del Method 80 18 149/93 H 97 Room Air 08/17/23 10:08/17/23 10:08/17/23 10:06 08/17/23 10:08/17/23 10:06 Narrative: Physical Exam: General: Alert and oriented x3, acute distress, pleasant and cooperative Lungs: Respirations even and unlabored, symmetrical chest expansion Eyes: PERRL Musculoskeletal: Flexion and extension of cervical spine within normal limits Neurological: Speech clear, no gross sensory deficit Assessment and Plan *Assessment and plan (1) TMJ dysfunction: Status: Acute Category: Medical Code(s): M26.609 - Unspecified temporomandibular joint disorder, unspecified side Plan Patient is experiencing significant pain throughout her left jaw and into her face. I did discuss with the patient that she may benefit from a TMJ joint injection. Risk and benefits were discussed with patient and she would like to proceed forward with this plan of care. I will also send in a new muscle relaxer of methocarbamol 500 mg 3 times daily and provide a 2-week supply of this medication. Patient will be submitted for a TMJ joint injection. Patient has tried and failed conservative therapies. \ Patient has been instructed to contact the clinic with any concerns before the next appointment. Dr. Nunez has reviewed this note and agrees with this plan of care. This note was dictated using voice recognition software and make contain errors or omissions.
== END 2023-08-17 23:59 | disposition home or self-care (01) ==
PROVIDERS: PCP Internal Medicine; Visit Provider Nurse Practitioner Family
DX: M26.602 Left temporomandibular joint disorder, unspecified (principal)
CPT/HCPCS: 99202; G0463

== ENCOUNTER 2023-08-18 15:00 | Outpatient (RCR) | payer MEDICAID, SELFPAY ==
--- NOTE | 2023-07-26 15:32 | HMH.PTOPEV ---
PT Outpatient Evaluation Rehab PT Outpatient Evaluation Start: 07/26/23 15:02 Freq: Status: Active Protocol: Document 07/26/23 15:19 PIEDAD (Rec: 07/26/23 15:32 PIEDAD Laptop) E-signed By Fredy Perry, PT Outpatient Therapy Subjective History Subjective History Pt reports insidious onset LBP beginning ~2 months ago, as well as bilateral hip and knee pain. 'I can tell if they all go together, but I'm really stiff when I get up in the morning.' Pt reports origin of pain is right side low back, ad reports improved s/s 'as the day goes on.' Recent xrays of knee,hip have been grossly negative. PMH:trigeminal neuralgia New diagnosis of cancer in past 12 No months? Chief Complaint Pain,Stiff Symptom Type Ache,Throb,Sharp Symptoms Relieved By Rest/Positioning,Activity Symptoms Aggravated By Standing,Bending/Stooping, Physical Activity,Walking Prior Functional Limitations Lifting,Housework,Squatting, Walking Current Functional Limitations Lifting,Housework,Squatting, Walking Symptom Description Constant but Variable Level of pain today (0-10) 5 Pain scale - at its best (0-10) 4 Pain scale - at its worst (0-10) 8 Lumbopelvic Eval Posture Thoracic Spine Posture Standing Position Fixed Scoliosis on (R) Lumbar Spine Posture Standing Position Neutral Assistive device Assistive Devices None / NA Gait Observation General Gait Pattern Observation Antalgic Gait Palapation tenderness right lumbar spinal tenderness Yes: 3/4 paraspinal tenderness Yes: 3/4 buttock tenderness Yes: 3/4 Lumbar/Sacral Palpation Findings Tenderness,Muscle Guarding Accessory Movement L-spine Vertebrae Accessory Movements [facility] [place] that Elicit Symptoms L4 right L5 right Range of Motion Lumbar Spine Active Flexion Range of 0-50 Motion (degrees) Lumbar Spine Active Extension Range of 0-15 Motion (degrees) Left Lumbar Spine Lateral Flexion Active 0-20 Range of Motion (degrees) Right Lumbar Spine Lateral Flexion 0-20 Active Range of Motion (degrees) Lumbar Spine ROM Limitations Soft Tissue Tightness,Pain Manual Muscle Test Bilateral Knee Extension Strength Grade 5 Normal Knee Flexion Strength Grade 4 Good Hip Flexion Strength Grade 4- Good- Hip Abduction Strength Grade 4- Good- Hip Adduction Strength Grade 4 Good Extensor Hallucis Longus Strength Grade 5 Normal Ankle Dorsiflexion Strength Grade 5 Normal Gastronemius/Soleus Strength Grade 5 Normal Special Tests Hip Piriformis Test Positive Right Sciatic Nerve Tension Test Negative Right Reverse Sciatic Nerve Tension Test Negative Right Lumbar Long Grubbs Distraction Test/Manual Negative Traction Hip/Knee Eval Palpation Tenderness bilateral Knee Palpation Finding None/Normal Knee Palpation Overall Comment right glut/piri 3/4 Hip Palpation Findings Tenderness ROM Knee ROM Reason Not Measured Within Functional Limits Lower Extremity Functional Index Activities Today, do you or would you have any difficulty at all with: a.Any of your usual work, housework or A little bit of difficulty school activities b. Your usual hobbies, recreational or A little bit of difficulty sporting activities c. Getting into or out of the bath Quite a bit of difficulty d. Walking between rooms Extreme difficulty or unable to perform activity e. Putting on your shoes or socks A little bit of difficulty f. Squatting A little bit of difficulty g. Lifting an object, like a bag of Extreme difficulty or unable groceries from the floor to perform activity h. Performing light activities around Extreme difficulty or unable your home to perform activity i. Performing heavy activities around Moderate difficulty your home j. Getting into or out of a car Moderate difficulty k. Walking 2 blocks Quite a bit of difficulty l. Walking a mile Quite a bit of difficulty m. Going up or down 10 stairs (about 1 A little bit of difficulty flight of stairs) n. Standing for 1 hour Extreme difficulty or unable to perform activity o. Sitting for 1 hour Quite a bit of difficulty p. Running on even ground Moderate difficulty q. Running on uneven ground Quite a bit of difficulty r. Making sharp turns while running fast Extreme difficulty or unable to perform activity s. Hopping A little bit of difficulty t. Rolling over in bed A little bit of difficulty LEFI Score Lower Extremity Functional Index Score 32 Outpatient Therapy Assessment Impairments Problems/Impairmments Palpation Tenderness,Impaired Range of Motion,Impaired Strength,Impaired Gait Pattern ,Impaired Walking,Impaired Standing,Impaired Lifting, Impaired Household Care, Impaired Squatting,Subjective C/O Pain,Impaired Self Care/ Self Management Prognosis Rehab Potential Good Clinical Impression Consistent with Diagnosis Yes Short Term Goals Number of Weeks 4 Decreased Palpation Tenderness Yes: 1-2/4 LUMBAR, HIP MM Increase Range of Motion Yes: 50-75% OF WFL LUMBAR AROM Increase Strength Yes: 05/26 B/L LE'S Increase Ability to Walk Yes: 30MIN Increase Ability to Stand Yes: 30MIN Improve Ability For Household Care Yes: 30MIN Decrease Subjective C/O Pain Yes: 3-4/10 W/ABOVE ACTIVITIES Patient to be Ind w/ HEP Yes Landmen Goals Number of Weeks 6-8 Decreased Palpation Tenderness Yes: 0-1/4 HIP, LUMBAR MM Increase Range of Motion Yes: WFL LUMBAR AROM Increase Strength Yes: 4+-5/5 B/L LE'S Improve Gait Pattern without Assistive Yes: WFL Device Increase Ability to Walk Yes: 60MIN Increase Ability to Stand Yes: 60MIN Improve Ability For Household Care Yes: 60MIN Improve Ability to Squat Yes: WFL(CAR T/F) Decrease Subjective C/O Pain Yes: 0-2/10 W/ABOVE ACTIVITIES Patient to be Ind w/ Advanced HEP Yes Outpatient Therapy Plan of Care Treatment Plan May Include Therapeutic Exercise Including Home Yes Exercise Program Manual Therapy Techniques Yes Neuromuscular Re-education Yes Therapeutic Activities to Return to Yes Previous Functional/Work Level Gait Training Yes ADL/Self Care Education Yes Mechanical Traction Yes Dry Needling Yes Thermal Modalities Yes Electrical Stimulation Yes Ultrasound/Phonophoresis Yes Orthotics/Bracing/Splinting Yes Eval/Re-Eval Yes Frequency Times per week 2-3 Duration Number of Weeks 6-8 Addendums This patient is a candidate for social No or vocational rehab? Patient/Guardian verbally acknowledges Yes understanding of treatment program and consents to further treatment? Patient/Guardian verbally acknowledges Yes understanding of diagnosis, prognosis and goals for treatment? Eval Complexity PT Charges 68889 - High Complexity Shoulder/Elbow Eval Shoulder Objective Measurements Elbow Objective Measurements PHYSICIAN CERTIFICATION: I certify the specified therapy services for Martha Barber are required, authorized, and reviewed every 30 days.
== END 2023-08-18 16:30 | disposition home or self-care (01) ==
LOC: PT 15:00
PROVIDERS: Visit Provider Nurse Practitioner Family
DX: M54.50 Low back pain, unspecified (principal); M25.50 Pain in unspecified joint
CPT/HCPCS: 97110; 97163; 97530

== ENCOUNTER 2023-08-22 16:39 | Emergency (ER) | payer MEDICAID, SELFPAY ==
[2023-08-22 16:43] VITALS: BP 148/109; PULSE 95; RESP 13; TEMP 36.6; O2SAT 98; BMI 49.2
--- NOTE | 2023-08-22 17:06 | HMH.EDGENADL ---
Discharge Plan Disposition Patient Disposition: Home, Self-Care Prescriptions Prescriptions: No Action hydroxyzine HCl 25 mg tablet 25 mg PO TID PRN (Reason: MOOD) cholecalciferol (vitamin D3) 1,250 mcg (50,000 unit) capsule 1,250 mcg PO WEEKLY Qty: 12 1RF fluoxetine 40 mg capsule 40 mg PO DAILY Patient Comments: TAKE 1 CAPSULE BY MOUTH ONCE DAILY gabapentin 400 mg capsule 400 mg PO TID Patient Comments: TAKE 1 CAPSULE BY MOUTH THREE TIMES DAILY baclofen 10 mg tablet 10 mg PO TIDP PRN (Reason: Pain) Patient Comments: TAKE 1 TABLET BY MOUTH UP TO THREE TIMES DAILY carbamazepine 200 mg tablet extended release 12 hr 200 mg PO TID Patient Comments: TAKE 1 TABLET BY MOUTH EVERY 12 HOURS methocarbamol 500 mg tablet 500 mg PO TID Qty: 42 0RF Referrals Follow up/Referrals: Davian Veliz DO [Primary Care Provider] - See instructions Activity Restrictions/Add. Instructions Additional Instructions/Restrictions: You have been on appropriate therapy for your trigeminal neuralgia and with a refractory case I recommend that you follow-up with a neurosurgeon to discuss microvascular decompression or other types of interventions such as gamma knife surgery. It sounds as if you are already being referred to one by your primary care doctor. No further emergency medical intervention is indicated at the moment. Clinical Impressions Clinical Impression: Trigeminal neuralgia Discharge ED Provider: Latasha Barr General Adult HPI General Chief complaint: PAIN Stated complaint: left side pain Time Seen by Provider: 08/22/23 16:44 Mode of Arrival: Ambulatory Source of Information: Patient Limitations: No Limitations Description of Symptoms (Recalled from ER Triage Doc. by RN): pt presents to ED from pcp office for left sided jaw pain. pt reports long history of trigeminal neurlagia. pt reports pain medication at home not helping. History of Present Illness HPI narrative: Patient is a 38-year-old female presenting today with chronic left-sided facial pain that has been previously diagnosed as trigeminal neuralgia. She has had numerous ED visits including multiple visits to [facility] for this. She has been on carbamazepine baclofen gabapentin without any significant improvement. It sounds as if her primary care doctor is trying to refer her to a neurosurgeon and she presented to the ED today with refractory pain. She has been seen by dentist for this as well and has been told that it is not her teeth are causing these pains. Her pain is located primarily in the left jaw. No fevers or chills facial swelling or other complaints. Related Data Home Medications Medication Instructions Recorded Confirmed baclofen 10 mg tablet 10 mg PO TIDP PRN Pain 12/13/22 08/22/23 fluoxetine 40 mg capsule 40 mg PO DAILY 12/13/22 08/22/23 gabapentin 400 mg capsule 400 mg PO TID 12/13/22 08/22/23 carbamazepine 200 mg 200 mg PO TID 04/27/23 08/22/23 tablet,extended release,12 hr hydroxyzine HCl 25 mg tablet 25 mg PO TID PRN MOOD 04/27/23 08/22/23 Previous Rx's Medication Instructions Recorded cholecalciferol (vitamin D3) 1,250 1,250 mcg PO WEEKLY #12 caps 06/30/23 mcg (50,000 unit) capsule methocarbamol 500 mg tablet 500 mg PO TID #42 tabs 08/17/23 Allergies Allergy/AdvReac Type Severity Reaction Status Date / Time No Known Allergies Allergy Verified 08/22/23 15:58 [facility] Disclaimer: The information contained in this section may have been updated after the patient was seen, as this information can be updated by other users. Medical History (Updated 08/22/23 @ 17:05 by Latasha Barr MD) Establishing care with new doctor, encounter for Arthritis Depression Anxiety Hypertension Trigeminal neuralgia Surgical History S/P skin biopsy Hx of tonsillectomy Hx of cholecystectomy Family History Mother Diabetes Social History Smoking Status: Former smoker tobacco type: cigarettes packs per day: 1 alcohol intake: never substance use type: denies use current occupational status: employed Travel in the last 8 weeks: None ROS Obtained: Yes All systems reviewed & no additional complaints except as documented Physical Exam General General appearance: alert and in no apparent distress ENT ENT exam: Present other (She does have dental caries and poor dentition but no significant swelling or mucosal inflammation or obvious abscess she is exquisitely tender over the jaw superficially on the face) Respiratory Respiratory exam: Present normal lung sounds bilaterally Cardiovascular Cardiovascular exam: Present regular rate Neurological Exam Neurological exam: Present alert and oriented X3 Medical Decision Making Karlo Inquiry Pt receiving controlled substance: No Vital Signs: 08/22/23 16:43 Temperature 97.9 F Temperature Source Oral Pulse Rate [Left Radial] 95 H Respiratory Rate 13 Blood Pressure [Right Arm] 148/109 H Blood Pressure Mean [Right Arm] 122 02 Sat by Pulse Oximetry 98 Oxygen Delivery Method Room Air Medical Decision Narrative: 38-year-old with refractory trigeminal neuralgia. She does have poor dentition however she states that she has follow-up with a dentist who has deemed her pain not secondary to her teeth. She has failed appropriate medications and likely needs surgical decompression or gamma knife surgery. Unfortunately nothing else that I can offer her in the emergency department. However she did have pain in her jaw and I attempted an inferior alveolar block as her pain seems to be localized more in her jaw than the skin of her face but she did not have any complete resolution of her symptoms stated maybe she had some improvement. She has been advised to follow-up with the neurosurgeon as she was previously being set up with. Procedures Nerve Block Nerve Block 1: Local Anesthetic: lidocaine 1% and bupivacaine 0.5% Amount of anesthesia used (mL): 5 Side: Left Intraoral Nerve Block: inferior alveolar Procedure Successful: No (Very mild improvement in symptoms but no complete resolution) Patient Tolerated Procedure: well Complications: none Critical Care Critical Care Time Critical Care Time: No
[2023-08-22] MEDS: LIDOCAINE 1% 10ML MDV 10 ML IM (17:12)
[2023-08-22] MEDS: BUPIVACAINE 0.25% 10ML INJ 10 MG IJ (17:12)
[2023-08-22 17:21] VITALS: BP 148/109; PULSE 95; RESP 13; TEMP 36.6
== END 2023-08-22 17:23 | disposition home or self-care (01) ==
PROVIDERS: Emergency Provider Student in an Organized Health Care Education/Training Program; PCP Internal Medicine
DX: G50.0 Trigeminal neuralgia (principal); R68.84 Jaw pain
CPT/HCPCS: 96372; 99283

== ENCOUNTER 2024-01-20 14:24 | Emergency (ER) | payer MEDICAID, SELFPAY ==
[2024-01-20 15:26] VITALS: BP 151/98; PULSE 97; RESP 18; TEMP 36.9; O2SAT 98; BMI 45.1
--- NOTE | 2024-01-20 15:34 | ED_ITS ---
Discharge Plan Disposition Patient Disposition: Home, Self-Care Condition: Good Prescriptions Prescriptions: New amoxicillin 875 mg tablet 875 mg PO Q12H Qty: 20 0RF benzonatate 100 mg capsule 100 mg PO TIDP PRN (Reason: Cough) Qty: 30 0RF No Action bupropion HCl [Wellbutrin SR] 150 mg tablet sustained-release 12 hr 150 mg PO DAILY Qty: 60 2RF gabapentin 400 mg capsule 400 mg PO TID Patient Comments: TAKE 1 CAPSULE BY MOUTH THREE TIMES DAILY amlodipine 5 mg tablet 5 mg PO DAILY Patient Comments: TAKE 1 TABLET BY MOUTH ONCE DAILY hydroxyzine HCl 25 mg tablet 25 mg PO DAILY Patient Comments: TAKE 2 TABLETS BY MOUTH THREE TIMES DAILY NEEDED Referrals Follow up/Referrals: Davian Veliz DO [Primary Care Provider] - See instructions Activity Restrictions/Add. Instructions Additional Instructions/Restrictions: Drink plenty of fluids. Take tylenol or ibuprofen for pain or fever. Take the medications as directed. Follow up with your regular doctor. GO TO THE ER FOR ANY WORSENING SYMPTOMS Clinical Impressions Clinical Impression: Strep throat Instructions Patient Instructions: Strep Throat, DI for Strep Throat Print Language Print Language: Camb[place]ian Discharge ED Provider[place] [facility] [place] General Stated complaint: H/A, congestion, cough, Mode of Arrival: Ambulatory Source of Information: Patient Time Seen by Provider: 01/20/24 15:33 Description of Symptoms (Recalled from Triage Doc. by RN): COUGH, CONGESTION, BURNETT, FEVER HEENT Symptoms (Recalled from RN notes): Yes Resp Symptoms (Recalled from RN notes): Yes Skin Symptoms (Recalled from RN notes): No MS Symptoms (Recalled from RN notes): No Functional Status (Recalled from RN notes): WNL Related Data Home Medications ?Medication ?Instructions ?Recorded ?Confirmed gabapentin 400 mg capsule 400 mg PO TID 12/13/22 01/20/24 amlodipine 5 mg tablet 5 mg PO DAILY 01/20/24 01/20/24 hydroxyzine HCl 25 mg tablet 25 mg PO DAILY 01/20/24 01/20/24 Previous Rx's ?Medication ?Instructions ?Recorded bupropion HCl 150 mg tablet,12 hr 150 mg PO DAILY #60 ea 12/20/23 sustained-release (Wellbutrin SR) amoxicillin 875 mg tablet 875 mg PO Q12H #20 tabs 01/20/24 benzonatate 100 mg capsule 100 mg PO TIDP PRN Cough #30 caps 01/20/24 Allergies Allergy/AdvReac Type Severity Reaction Status Date / Time No Known Allergies Allergy Verified 08/22/23 15:58 Worker's Comp Is this a Worker's Comp case?: No [facility] Disclaimer: The information contained in this section may have been updated after the patient was seen, as this information can be updated by other users. Medical History (Updated 01/20/24 @ 16:21 by Jonny Portillo APRN) Establishing care with new doctor, encounter for Arthritis Depression Anxiety Hypertension Trigeminal neuralgia Surgical History S/P skin biopsy Hx of tonsillectomy Hx of cholecystectomy Family History Mother Diabetes Social History Smoking Status: Former smoker tobacco type: cigarettes packs per day: 1 alcohol intake: never substance use type: denies use current occupational status: employed ROS Obtained: Yes All systems reviewed & no additional complaints except as documented Constitutional Constitutional: Reports chills and Reports fever(s) Eyes Eyes: Denies eye discharge ENT Ears, Nose, Mouth, and Throat: Reports as per HPI Cardiovascular Cardiovascular: Denies chest pain Respiratory Respiratory: Denies chest congestion and Reports cough Gastrointestinal Gastrointestingal: Reports nausea; Denies abdominal pain, constipation, cramping, diarrhea or vomiting Musculoskeletal Musculoskeletal: Denies arthralgias Integumentary/Breasts Skin/Breast: Denies rash Neurologic Neurologic: Denies paresthesias Physical Exam General General appearance: alert and in no apparent distress Head Head exam: atraumatic, normocephalic and normal inspection Eye Eye exam: Present normal appearance, PERRL and EOMI ENT ENT exam: Present mucous membranes moist and normal external ear exam Expanded ENT Exam TM/Canal exam: Bilateral TM: erythema and bulging Nose exam: Absent sinus tenderness Mouth exam: Present normal external inspection; Absent drooling Teeth exam: Present normal inspection Throat exam: Present tonsillar erythema, tonsillomegaly and tonsillar exudate Neck Neck exam: Present normal inspection, full ROM and trachea midline; Absent tenderness, meningismus or lymphadenopathy Chest Chest inspection: Present normal inspection and symmetric chest wall rise; Absent tenderness Respiratory Respiratory exam: Present normal lung sounds bilaterally; Absent respiratory distress, wheezes, stridor or accessory muscle use Cardiovascular Cardiovascular exam: Present regular rate and normal rhythm; Absent systolic murmur or diastolic murmur Abdominal Exam Abdominal exam: Present soft and normal bowel sounds; Absent distention, tenderness, guarding, rebound or rigidity Extremities Exam Extremities exam: Present normal inspection and normal capillary refill; Absent calf tenderness Back Exam Back exam: Present normal inspection and full ROM; Absent tenderness, CVA tenderness (R) or CVA tenderness (L) Neurological Exam Neurological exam: Present alert, oriented X3 and CN II-XII intact Psychiatric Psychiatric exam: Present normal affect and normal mood Skin Skin exam: Present warm, dry, intact and normal color Medical Decision Making Medical Records Medical records reviewed: No I reviewed the patient's medical records. Screening: Per USPSTF and CDC recommendations, given the prevalence of disease in our region, it is our hospital?s policy to screen for HIV and viral Hepatitis for all patients aged 18 and over and those with ongoing risk factors. Karlo Inquiry Pt receiving controlled substance: No Vital Signs: 01/20/24 15:26 Temperature 98.4 F Temperature Source Oral Pulse Rate [Left Radial] 97 H Respiratory Rate 18 Blood Pressure [Left Arm] 151/98 H Blood Pressure Mean [Left Arm] 115 02 Sat by Pulse Oximetry 98
[2024-01-20 15:48] LABS: UTC Strep Screen (Rapid) Negative (Negative)
[2024-01-20 15:49] LABS: UTC Influenza A Antigen Negative (Negative); UTC Influenza B Antigen Negative (Negative)
[2024-01-20 16:31] VITALS: BP 151/98; PULSE 97; RESP 18; TEMP 36.9
== END 2024-01-20 16:32 | disposition home or self-care (01) ==
PROVIDERS: Emergency Provider Nurse Practitioner Family; PCP Internal Medicine
DX: J02.0 Streptococcal pharyngitis (principal)
CPT/HCPCS: 87804; 87880; 99213; G0381

== ENCOUNTER 2024-02-16 16:00 | Outpatient (RCR) | payer MEDICAID, SELFPAY ==
--- NOTE | 2024-01-02 16:01 | HMH.PTOPEV ---
PT Outpatient Evaluation Rehab PT Outpatient Evaluation Start: 01/02/24 10:17 Freq: Status: Active Protocol: Document 01/02/24 10:17 JUNIOR (Rec: 01/02/24 12:26 JUNIOR [id number]) E-signed By Daysi Keyes, PT Outpatient Therapy Subjective History Subjective History This is an initial physical therapy evaluation for 38 y/o female, Martha Barber, who presents to PT with referral for knee and hip pain. Pt reports she has no pain in her hips. Pt's only complaint is L knee pain. Pt reports her pain was insidious in nature and did not have any prior known injuries/accidents. Pt was told she has arthritis in both her knees. Pt has been having this knee pain for ~1 year. Denies prior surgeries or injections. Pt reports she came to PT in the past but they worked on her hip and back. Pt was previously limited by Trigeminal neuralgia but that resolved after surgery. Pt reports pain is the same in morning as it is at night. Standing, walking , transitioning aggravate her pain the most. Pt reports rest helps the pain. Pt denies numbness, weakness, clicking, popping, or tingling sensation . Pt points to her anterior knee as source of pain. Imaging: X-ray imaging clear for bony abnormality in knee. PMH: Trigeminal neuralgia ( resolved through surgery). New diagnosis of cancer in past 12 No months? Chief Complaint Pain,Weakness Symptom Type Ache,Dull Symptoms Relieved By Rest/Positioning Symptoms Aggravated By Bending/Stooping,Physical Activity,Walking Prior Functional Limitations None Current Functional Limitations Housework,Sleeping,Standing, Squatting,Recreation Activity, Walking,Stairs Symptom Description Constant but Variable Level of pain today (0-10) 1 Pain scale - at its best (0-10) 0 Pain scale - at its worst (0-10) 8 Hip/Knee Eval Gait Observation General Gait Pattern Observation Antalgic Gait,Decrease Weight Bear (L) Assistive Device Assistive Devices None / NA Palpation Tenderness left Knee Palpation Finding None/Normal Knee Palpation Overall Comment not TTP MMT Hip Flexion Strength Grade 4- Good- Hip Abduction Strength Grade 4 Good Hip Adduction Strength Grade 4 Good Hip Extension Strength Grade 4 Good Knee Extension Strength Grade 4 Good Knee Flexion Strength Grade 4 Good ROM Knee Extension Active Range of Motion ( 0 degrees) Knee Flexion Active Range of Motion ( 110, soft tissue limit degrees) Knee ROM Limitations Soft Tissue Tightness Special Tests Knee Apprehension Test Negative Left Knee Apley Compression Test Negative Left Knee Anterior Drawer Test Negative Left Knee Jerk ([place]) Test Negative Left Knee Anterior Pako Test Negative Left Knee Pivot Shift Test Negative Left Knee Posterior Sag ([place] Drawer) Test Negative Left Knee Valgus Stress Test Negative Left Knee Varus Stress Test Negative Left Knee Hilario Test Negative Left Patella Apprehension Test Negative Left Lower Extremity Functional Index Activities Today, do you or would you have any difficulty at all with: a.Any of your usual work, housework or Moderate difficulty school activities b. Your usual hobbies, recreational or A little bit of difficulty sporting activities c. Getting into or out of the bath Moderate difficulty d. Walking between rooms Quite a bit of difficulty e. Putting on your shoes or socks Moderate difficulty f. Squatting Moderate difficulty g. Lifting an object, like a bag of Extreme difficulty or unable groceries from the floor to perform activity h. Performing light activities around Extreme difficulty or unable your home to perform activity i. Performing heavy activities around Moderate difficulty your home j. Getting into or out of a car Moderate difficulty k. Walking 2 blocks Moderate difficulty l. Walking a mile Moderate difficulty m. Going up or down 10 stairs (about 1 No difficulty flight of stairs) n. Standing for 1 hour Moderate difficulty o. Sitting for 1 hour Extreme difficulty or unable to perform activity p. Running on even ground A little bit of difficulty q. Running on uneven ground A little bit of difficulty r. Making sharp turns while running fast A little bit of difficulty s. Hopping Moderate difficulty t. Rolling over in bed A little bit of difficulty LEFI Score Lower Extremity Functional Index Score 40 Miscellaneous Dx PT Eval Objective Objective Observation: - Antalgic gait throughout evaluation, decreased WBing on LLE. - Unable to hold SLS but denies pain with SLS WBing on L LE. Outpatient Therapy Assessment Impairments Problems/Impairmments Impaired Strength,Impaired Transfers,Impaired Gait Pattern,Impaired Walking, Impaired Standing,Impaired Stair Climbing,Impaired Squatting,Impaired Bending, Impaired Recreational Activities,Impaired Work Activities,Subjective C/O Pain Prognosis Rehab Potential Good Comment Pt presents with chronic and insidious left knee pain. Pt's x-rays were clear from bony injury. Special tests for soft tissue damage in knee were negative. Thessaly's test did cause pt knee pain (no clicking/catching reported) but other meniscus special tests were negative for pain or catching. Pt would benefit from skilled OP PT to treat strength and mobility deficits . Clinical Impression Consistent with Diagnosis Yes Consistent with knee pain Short Term Goals Number of Weeks 4 Increase Strength Yes: L hip flexion improve to 4/5. Quad strength to 4+/5 Increase Ability to Walk Yes: Verbalize improved tolerance to community ambulation distance. Increase Ability to Stand Yes: 30 minutes without increase in knee pain. Improve LEFI Score Yes: Improve by 4 points. Decrease Subjective C/O Pain Yes: 24 hour pain average of 4 /10 (best/worst/current) Patient to be Ind w/ HEP Yes: Verbalize IND with HEP Usp Goals Number of Weeks 6 Increase Strength Yes: Knee and hip MMT 5/5 to maximize LLE strength Improve Gait Pattern without Assistive Yes: Demo no antalgic gait Device pattern. Increase Ability to Walk Yes: 30 minutes without increase in knee pain. Improve Balance Yes: Hold SLS for 10 seconds to improve functional balance. Improve LEFI Score Yes: Improve to 55/80 to improve LE functioning. Decrease Subjective C/O Pain Yes: Decrease at worst pain to 4/10 to improve QOL and decrease symptom severity Patient to be Ind w/ Advanced HEP Yes: Verbalize adherence to HEP Outpatient Therapy Plan of Care Treatment Plan May Include Therapeutic Exercise Including Home Yes Exercise Program Manual Therapy Techniques Yes Neuromuscular Re-education Yes Therapeutic Activities to Return to Yes Previous Functional/Work Level Gait Training Yes ADL/Self Care Education Yes Dry Needling Yes Thermal Modalities Yes Electrical Stimulation Yes Ultrasound/Phonophoresis Yes Iontophoresis Yes Orthotics/Bracing/Splinting Yes Vasopneumatic Compression Pump Yes Massage Yes Eval/Re-Eval Yes Frequency Times per week 2-3 times Duration Number of Weeks 5-6 weeks Addendums This patient is a candidate for social No or vocational rehab? Patient/Guardian verbally acknowledges Yes understanding of treatment program and consents to further treatment? Patient/Guardian verbally acknowledges Yes understanding of diagnosis, prognosis and goals for treatment? Eval Complexity PT Charges 64043 - Moderate Complexity Shoulder/Elbow Eval Shoulder Objective Measurements Elbow Objective Measurements PHYSICIAN CERTIFICATION: I certify the specified therapy services for Marthacaryn Toneyon are required, authorized, and reviewed every 30 days.
== END 2024-02-16 23:59 | disposition home or self-care (01) ==
LOC: PT 16:00
PROVIDERS: Visit Provider Internal Medicine
DX: M25.562 Pain in left knee (principal)
CPT/HCPCS: 97014; 97110; 97112; 97163; 97530; G0283

== ENCOUNTER 2024-03-09 11:00 | Outpatient (RCR) | payer MEDICAID, SELFPAY ==
--- NOTE | 2024-03-06 11:58 | HMH.RHREAS ---
Rehab Reassessment Rehab OP Re-assessment Start: 03/06/24 11:07 Freq: Status: Active Protocol: Document 03/06/24 11:15 JUNIOR (Rec: 03/06/24 11:58 JUNIOR [id number]) E-signed By Daysi Keyes PT Lower Extremity Functional Index Activities Today, do you or would you have any difficulty at all with: a.Any of your usual work, housework or A little bit of difficulty school activities b. Your usual hobbies, recreational or Moderate difficulty sporting activities c. Getting into or out of the bath Quite a bit of difficulty d. Walking between rooms A little bit of difficulty e. Putting on your shoes or socks Moderate difficulty f. Squatting A little bit of difficulty g. Lifting an object, like a bag of No difficulty groceries from the floor h. Performing light activities around No difficulty your home i. Performing heavy activities around Moderate difficulty your home j. Getting into or out of a car A little bit of difficulty k. Walking 2 blocks Moderate difficulty l. Walking a mile Moderate difficulty m. Going up or down 10 stairs (about 1 Quite a bit of difficulty flight of stairs) n. Standing for 1 hour Moderate difficulty o. Sitting for 1 hour No difficulty p. Running on even ground Moderate difficulty q. Running on uneven ground Moderate difficulty r. Making sharp turns while running fast Moderate difficulty s. Hopping A little bit of difficulty t. Rolling over in bed Moderate difficulty LEFI Score Lower Extremity Functional Index Score 49 Rehab Re-assessment Subjective Subjective Pt reports she can not tell a difference in her L knee. Pt feels stronger but reports her achiness is still there. 24 hour knee pain average: 3/ 10 I'm a little burned out on PT HEP: Pt reports she does her exercises at least once a day. Objective Objective Notes Strength: L knee flexion: 4+/5 L knee extension: 4+/5 (pain with MMT) L hip flexion: 4/5 L knee ROM: WNL Gait: No antalgic gait noted LEFS: 49/80 (40/80 at IE) Assessment Progress Assessment Slower Than Expected Assessment Notes This is a reassessment for Martha Barber who presents to PT for c/o knee pain. Since , pt has been seen for 9 treatment visits since that have consisted of modalities prn, education, and therapeutic exercises focusing on hip and knee strength. Pt has been seen twice since last RA. Pt with fair attendance to scheduled PT sessions. Since IE, pt with improvements in subjective c/ o pain and L hip and knee strength. Progress limited by limited number of sessions attended. Pt reports she still has achiness but does notice improved strength. PT recommending hold PT POC d/t current progress and pt's subjective reports. PT educated pt to return to PCP for further medical evaluation /management. Patient goals met ST/6 1) L hip flexion improve to 4/ 5. Quad strength to 4+/5: Met 2) Verbalize improved tolerance to community ambulation distance: Met 3) 30 minutes without increase in knee pain: Not Met 4) Improve by 4 points: Met 5) 24 hour pain average of 4/ 10 (best/worst/current): Met 6) Verbalize IND with HEP: Met LT/7 1) Knee and hip MMT 5/5 to maximize LLE strength: Not Met 2) Demo no antalgic gait pattern: Met 3) Amb 30 minutes without increase in knee pain: Not met 4) Hold SLS for 10 seconds to improve functional balance: Not met 5) Improve to 55/80 to improve LE functioning: Not Met 6) Decrease at worst pain to 4 /10 to improve QOL and decrease symptom severity: Met 7) Verbalize adherence to HEP: Met Plan Plan Hold PT POC to assess pt's ability manage symptoms with HEP and wait until pt sees PCP . Pt may return to current PT POC within 30 days if symptoms do not improve with HEP. Time and Billing Re-Eval Time 10 Re-Eval Billing Units 0 Charge for PT reassessment? No PHYSICIAN CERTIFICATION: I certify the specified therapy services for Martha Barber are required, authorized, and reviewed every 30 days.
== END 2024-03-09 23:59 | disposition home or self-care (01) ==
LOC: PT 11:00
PROVIDERS: Visit Provider Internal Medicine
DX: M25.562 Pain in left knee (principal); M25.552 Pain in left hip
CPT/HCPCS: 97110; 97530